=== PATIENT | male | born 1985 | race Caucasian/White ===

== ENCOUNTER 2019-03-29 21:39 | Emergency (ER) | payer SELFPAY, OTHER ==
[2019-03-29 22:00] LABS: ADD MAN DIFF? NO
[2019-03-29] MEDS: morphine 4 MG/ML VIAL IV ×2 (22:01→23:20)
[2019-03-29] MEDS: CEFAZOLIN 1 GM/50 ML (PMX) 50 ML IVPB (22:01)
[2019-03-29] MEDS: ONDANSETRON 4 MG INJ IV (22:01)
[2019-03-29] MEDS: SOD CHLORIDE 0.9% 1,000 ML IV (22:02)
[2019-03-29] MEDS: DIPHTH/TET/ACEL PERTUSS (ADULT) 0.5 ML VIAL IM* (22:02)
[2019-03-29 22:03] LABS: WHITE BLOOD COUNT 7.9 10^3/ul (4.8-10.8)
[2019-03-29 22:03] LABS: BASOPHILS % 0.4 % (0.0-2.0); EOSINOPHILS # 0.2 10^3/ul (0.0-0.5); EOSINOPHILS % 2.5 % (0.0-7.0); HEMATOCRIT 41.2 % (42.0-52.0); HEMOGLOBIN 14.4 g/dl (14.0-18.0); LYMPHOCYTES # 3.7 10^3/ul (0.8-2.9); LYMPHOCYTES % 46.9 % (15.0-51.0); MEAN CORPUSCULAR HEMOGLOBIN 29.2 pg (29.0-33.0); MEAN CORPUSCULAR VOLUME 83.6 fl (82.0-101.0); MEAN PLATELET VOLUME 10.1 fl (7.4-10.4); MONOCYTE # 0.6 10^3/ul (0.3-0.9); MONOCYTES % 8.1 % (0.0-11.0); NEUTROPHIL # 3.3 10^3/ul (1.6-7.5); NEUTROPHILS % 41.7 % (39.0-77.0); PLATELET COUNT 266 10^3/UL (140-415); RED BLOOD COUNT 4.93 10^6/ul (4.70-6.10); RED CELL DISTRIBUTION WIDTH 12.2 % (11.5-14.5)
[2019-03-29 22:19] LABS: ANION GAP 8 (5-13); BLOOD UREA NITROGEN 15 mg/dl (7-20); CALCIUM 9.4 mg/dl (8.4-10.2); CARBON DIOXIDE 31 mmol/L (21-31); CHLORIDE 102 mmol/L (97-110); CREATININE 1.11 mg/dl (0.61-1.24); Estimated GFR > 60 mL/min (>60); GLUCOSE 108 mg/dl (70-220); POTASSIUM 4.3 mmol/L (3.5-5.1); SODIUM 141 mmol/L (135-144)
[2019-03-29 22:28] LABS: INR 0.89; PROTIME 12.1 Sec (11.9-14.9); PT RATIO 0.9
[2019-03-29 22:29] LABS: PARTIAL THROMBOPLASTIN TIME 26.6 Sec (23.0-35.0)
== END 2019-03-30 00:44 | disposition short-term general hospital (02) ==
LOC: E/R 03-30 00:44
DX: S61.011A Laceration without foreign body of right thumb without damage to nail, initial encounter (principal); X99.1XXA Assault by knife, initial encounter; Z23 Encounter for immunization
CPT/HCPCS: 36415; 73110-RT; 80048; 85025; 85610; 85730; 90471; 90715; 96365; 96375; 96376; 99285-25